=== PATIENT | female | born 1950 | race Caucasian/White ===

== ENCOUNTER 2018-06-24 09:51 | Emergency (ER) | payer OTHER ==
[~2018-06-24] VITALS: Ht 162.6 cm; Wt 56.7 kg
[2018-06-24] MEDS ORDERED: TEKTURNA300 MG (10:02)
[2018-06-24] MEDS ORDERED: [UNRECOGNIZED DRUG - OTHER] (10:03)
[2018-06-24] MEDS ORDERED: INDAPAMIDE1.25 MG (10:03)
== END 2018-06-24 17:14 | disposition home or self-care (01) ==
LOC: ER 09:51
DX: I16.1 Hypertensive emergency (principal); I10 Essential (primary) hypertension

== ENCOUNTER 2018-06-26 08:19 | Emergency (ER) | payer OTHER ==
[~2018-06-26] VITALS: Ht 162.6 cm; Wt 56.7 kg
[~2018-06-26 08:19] MED LIST: INDAPAMIDE1.25 MG; TEKTURNA300 MG; [UNRECOGNIZED DRUG - OTHER]
== END 2018-06-26 11:10 | disposition home or self-care (01) ==
LOC: ER 08:19
DX: R42 Dizziness and giddiness (principal); R20.0 Anesthesia of skin; R20.2 Paresthesia of skin

== ENCOUNTER 2018-08-08 21:16 | Emergency (ER) | payer OTHER ==
[~2018-08-08] VITALS: Ht 162.6 cm; Wt 56.2 kg
== END 2018-08-09 00:56 | disposition home or self-care (01) ==
LOC: ER 21:16
DX: I16.0 Hypertensive urgency (principal); I10 Essential (primary) hypertension

== ENCOUNTER 2018-09-04 20:08 | Emergency (ER) | payer OTHER ==
[~2018-09-04] VITALS: Ht 162.6 cm; Wt 54.4 kg
== END 2018-09-04 23:44 | disposition home or self-care (01) ==
LOC: ER 20:08
DX: I16.0 Hypertensive urgency (principal); I10 Essential (primary) hypertension

== ENCOUNTER → 2018-09-05 | Emergency (ER) | payer OTHER | END | disposition left against medical advice (07) | LOC: ER 03:52 | DX: Z53.20 Procedure and treatment not carried out because of patient's decision for unspecified reasons (principal) ==

== ENCOUNTER 2018-09-14 19:47 | Emergency (ER) | payer OTHER ==
[~2018-09-14] VITALS: Ht 162.6 cm; Wt 53.1 kg
[2018-09-14] MEDS ORDERED: CLONIDINE HCL0.2 MG (20:03)
[2018-09-14] MEDS ORDERED: HYDRALAZINE HCL25 MG (20:03)
== END 2018-09-14 22:35 | disposition home or self-care (01) ==
LOC: ER 19:47
DX: R07.89 Other chest pain (principal)

== ENCOUNTER 2019-01-10 16:19 | Emergency (ER) | payer OTHER ==
[~2019-01-10] VITALS: Ht 162.6 cm; Wt 53.1 kg
[~2019-01-10 16:19] MED LIST changes: +CLONIDINE HCL0.2 MG; +HYDRALAZINE HCL25 MG
== END 2019-01-10 19:35 | disposition home or self-care (01) ==
LOC: ER 16:19
DX: I16.0 Hypertensive urgency (principal); I10 Essential (primary) hypertension

== ENCOUNTER 2019-01-24 14:27 | Emergency (ER) | payer OTHER ==
[~2019-01-24] VITALS: Ht 162.6 cm; Wt 53.1 kg
== END 2019-01-24 16:50 | disposition home or self-care (01) ==
LOC: ER 14:27
DX: R07.89 Other chest pain (principal)

== ENCOUNTER 2019-09-05 18:01 | Inpatient (IN) | payer OTHER ==
[~2019-09-05] VITALS: Ht 162.6 cm; Wt 57.6 kg
--- NOTE | 2019-09-05 18:14 | NUR ---
PTE REFIERE B/P ELEVADA HACE VARIOS QUINONEZ. SE PRISCA B/P MANUAL EN 180/70. LUEGO DE BREE TOMADO CATAPRES0.3MG PO HACE ALREDEDOR DE 30 MINUTOS.
--- NOTE | 2019-09-05 18:56 | NUR ---
SE RECIBE PTE FEMENINA DE 69 YRS ALERTA CONCIETNE Y TRANQUILA. PTE ES EVALUADA POR EL OSTA QUIEN ORDENA TRATAMIENTO LA CUAL SE EJECUTRA . SE MANTIENE EN ESPERA DE MEDICO CONSULTOR DR. JUSTUS EVANS.
[2019-09-06] MEDS ORDERED: CATAPRES0.3 MG (07:46)
[2019-09-11] MEDS ORDERED: CATAPRES0.3 M1 PO (15:05)
[2019-09-11] MEDS ORDERED: DOXAZOSIN MESYLA2 MG PO (15:07)
== END 2019-09-11 16:34 | disposition home or self-care (01) | DRG 305 ==
LOC: ER 18:01 → MEDJ 19:28
PROVIDERS: ADMIT Internal Medicine; ATTEND Internal Medicine
PROC: 4A12X4Z Monitoring of Cardiac Electrical Activity, External Approach (ICD-10-PCS; principal; 2019-09-08)
DX: I16.9 Hypertensive crisis, unspecified (principal); I10 Essential (primary) hypertension; E11.65 Type 2 diabetes mellitus with hyperglycemia; Z79.4 Long term (current) use of insulin; F41.9 Anxiety disorder, unspecified

== ENCOUNTER 2019-09-27 06:03 | Emergency (ER) | payer OTHER ==
[~2019-09-27] VITALS: Ht 162.6 cm; Wt 57.6 kg
[~2019-09-27 06:03] MED LIST changes: +CATAPRES0.3 M1 PO; +CATAPRES0.3 MG; +DOXAZOSIN MESYLA2 MG PO
== END 2019-09-27 21:33 | disposition home or self-care (01) ==
LOC: CPU-OBS 06:03 → ER 06:03
DX: R07.89 Other chest pain (principal); I10 Essential (primary) hypertension; E11.9 Type 2 diabetes mellitus without complications

== ENCOUNTER 2019-11-05 21:37 | Emergency (ER) | payer OTHER ==
[~2019-11-05] VITALS: Ht 162.6 cm; Wt 57.2 kg
== END 2019-11-06 00:45 | disposition home or self-care (01) ==
LOC: ER 21:37
DX: I16.0 Hypertensive urgency (principal); I10 Essential (primary) hypertension; Z20.828 Contact with and (suspected) exposure to other viral communicable diseases

== ENCOUNTER 2022-04-25 12:43 | Emergency (ER) | payer OTHER ==
[~2022-04-25] VITALS: Ht 162.6 cm; Wt 58.1 kg
== END 2022-04-25 15:26 | disposition home or self-care (01) ==
LOC: ER 12:43
DX: R60.0 Localized edema (principal); I10 Essential (primary) hypertension; Z88.2 Allergy status to sulfonamides; Z88.8 Allergy status to other drugs, medicaments and biological substances

== ENCOUNTER 2022-07-19 17:17 | Inpatient (IN) | payer OTHER ==
[~2022-07-19] VITALS: Ht 162.6 cm; Wt 58.1 kg
[2022-07-19] MEDS ORDERED: LANTUS SOL100 UNIT/1 SQ (18:06)
[2022-07-19] MEDS ORDERED: VASOTEC20 M1 PO (18:06)
== END 2022-07-21 22:17 | disposition designated cancer center or children's hospital (05) | DRG 280 ==
LOC: ER 17:17 → MEDJ 23:40
PROVIDERS: ADMIT Specialist; ATTEND Specialist
PROC: 4A12X4Z Monitoring of Cardiac Electrical Activity, External Approach (ICD-10-PCS; principal; 2022-07-19)
PROC: 3E0F7SF Introduction of Other Gas into Respiratory Tract, Via Natural or Artificial Opening (ICD-10-PCS; 2022-07-19)
PROC: B020ZZZ Computerized Tomography (CT Scan) of Brain (ICD-10-PCS; 2022-07-19)
PROC: BT43ZZZ Ultrasonography of Bilateral Kidneys (ICD-10-PCS; 2022-07-19)
PROC: B246ZZZ Ultrasonography of Right and Left Heart (ICD-10-PCS; 2022-07-19)
DX: I11.0 Hypertensive heart disease with heart failure (principal); I50.23 Acute on chronic systolic (congestive) heart failure; I21.4 Non-ST elevation (NSTEMI) myocardial infarction; I16.1 Hypertensive emergency; T46.5X5A Adverse effect of other antihypertensive drugs, initial encounter; K90.0 Celiac disease; E11.9 Type 2 diabetes mellitus without complications; Y92.9 Unspecified place or not applicable; Z79.4 Long term (current) use of insulin